=== PATIENT | male | born 1980 | race Hispanic/Latino ===

== ENCOUNTER 2019-06-30 12:09 | Emergency (ER) | payer SELFPAY ==
[2019-06-30] MEDS ORDERED: Lidocaine 1% (PF) 30 ML VIAL ONE (12:59)
[2019-06-30] MEDS ORDERED: HYDROcodone/Acetaminophen 10/325 mg Tablet ONE (13:12)
== END 2019-06-30 13:39 | disposition home or self-care (01) ==
LOC: ERS 12:09 → EDBD 12:09 → ERS 13:39
DX: L05.01 Pilonidal cyst with abscess (principal); F17.210 Nicotine dependence, cigarettes, uncomplicated
CPT/HCPCS: 10080; J2001

== ENCOUNTER 2019-07-02 09:03 | Emergency (ER) | payer SELFPAY ==
[2019-07-02] MEDS ORDERED: Acetaminophen 500 MG TAB ONE (09:33)
== END 2019-07-02 09:39 | disposition home or self-care (01) ==
LOC: ERS 09:03
DX: Z48.817 Encounter for surgical aftercare following surgery on the skin and subcutaneous tissue (principal); Z71.6 Tobacco abuse counseling; F17.210 Nicotine dependence, cigarettes, uncomplicated; Z79.899 Other long term (current) drug therapy
CPT/HCPCS: 99406